=== PATIENT | male | born 1975 | race Caucasian/White ===

== ENCOUNTER → 2020-02-02 | Outpatient (CLI) | payer BC ==
--- NOTE | 2020-02-03 09:33 | CT ---
EXAM: Head CLINICAL HISTORY: headache COMPARISON STUDY: None TECHNICAL: Noncontrast CT images were acquired through the brain. FINDINGS: The cerebral and cerebellar parenchyma appears normal. No intracranial hemorrhage. No masses are identified. The calvarium appears intact. IMPRESSION: NORMAL HEAD CT WITHOUT CONTRAST. This exam was performed according to our departmental dose-optimization program, which includes automated exposure control, adjustment of the mA and/or kV according to patient size and/or use of iterative reconstruction technique. Electronically signed by: Dilip Jasmine MD 02/03/2020 9:32 AM CDT
== END ==
LOC: CT 08:39
PROVIDERS: ATTEND Nurse Practitioner Family
DX: R51 Headache (principal)